=== PATIENT | female | born 1945 | race Caucasian/White ===

== ENCOUNTER 2019-04-29 11:26 | Emergency (ER) | payer OTHER ==
[~2019-04-29] VITALS: Ht 160 cm; Wt 88.0 kg
[2019-04-29] MEDS ORDERED: ATORVASTATIN CA40 MG PO (11:54)
[2019-04-29] MEDS ORDERED: MICARDIS 80 MG80 MG PO (11:54)
[2019-04-29] MEDS ORDERED: PACERONE 200 M200 M1 PO (11:54)
[2019-04-29] MEDS ORDERED: KLOR-CON 1010 MEQ PO (11:54)
[2019-04-29] MEDS ORDERED: FLONASE 0.05%50 MCG NASAL (11:56)
[2019-04-29] MEDS ORDERED: UNICOMPLEX M TA1 TA1 PO (11:56)
[2019-04-29] MEDS ORDERED: ASPIR 8181 MG PO (11:56)
[2019-04-29] MEDS ORDERED: PHOSLO667 MG PO (11:56)
--- NOTE | 2019-04-29 13:54 | EKG ---
[place] [address] [facility] [place] [address] ELECTROCARDIOGRAM REPORT Name: JEANNEELGIN ROHITH Room #: [facility] [id number] ������������������ Admission: 04/29/19 ������������������ Attend Phys: Discharge: ������������������ Date of : 49 Report #: [id number] ����������������������������������������������������������������� [id number] THIS REPORT FOR: //name// [facility] ED Test Date: 2019-04-29 Test Time: 12:42:30 Pat Name: ELGIN ANGEL Department: Room: Gender: F [employer]: TALISHA : 1945 Requested By: Kacie Camacho Order Number: [id number] MD: Carlos Jaquez Measurements Intervals [place] Rate: 58 P: 21 [place]: 210 QRS: -29 QRSD: 92 T: 55 QT: 463 QTc: 455 Interpretive Statements Sinus rhythm Borderline left axis deviation Anteroseptal infarct, age indeterminate Baseline wander in lead(s) V1 No previous ECG available for comparison Electronically Signed On 04-29-2019 13:54:32 CDT by Carlos Jaquez [email or web address] ��������������������������������������������� <ELECTRONICALLY SIGNED> ���������������������������������������� By: Carlos Jaquez MD ��������������������������������������������� 04/29/19 1354 [id number] 1242 Carlos Jaquez MD /JUAN
[2019-04-29 14:40] LABS: HEMATOCRIT 32.9 % (37.0-47.0); HEMOGLOBIN 10.7 gm/dL (12.0-15.0); MCH 28.1 pg (26.0-34.0); MCHC 32.4 g/dL (28.0-37.0); MCV 86.9 fL (80.0-100.0); PLATELET COUNT 272 thou/uL (150-400); RBC 3.79 mil/uL (4.20-5.00); RDW 13.4 % (10.5-14.5); WBC 21.2 thou/uL (4.0-11.0)
[2019-04-29 14:56] LABS: PLATELET ESTIMATE NORMAL
[2019-04-29 14:58] LABS: ANION GAP 8 mmol/L (7-16); BUN 26 mg/dL (7-18); CALCIUM 9.5 mg/dL (8.5-10.1); CHLORIDE 105 mmol/L (98-107); CO2 25 mmol/L (21-32); CREATININE 2.2 mg/dL (0.6-1.0); GLUCOSE 131 mg/dL (74-106); POTASSIUM 5.2 mmol/L (3.5-5.1); SODIUM 138 mmol/L (136-145)
[2019-04-29 15:03] LABS: ALBUMIN 3.4 g/dL (3.4-5.0); SGOT 46 U/L (15-37); SGPT 45 U/L (30-65); TOTAL PROTEIN 7.2 g/dL (6.4-8.2); TROPONIN-I <0.06 ng/mL (<0.06)
[2019-04-29 15:24] LABS: PROTIME 9.9 Seconds (9.3-11.4)
[2019-04-29 15:40] LABS: URINE BILIRUBIN NEGATIVE (Negative); URINE BLOOD NEGATIVE (Negative); URINE CLARITY CLEAR; URINE COLOR YELLOW; URINE GLUCOSE-RANDOM* NEGATIVE (Negative); URINE KETONES NEGATIVE (Negative); URINE NITRITE-REFLEX NEGATIVE (Negative); URINE PROTEIN (DIPSTICK) NEGATIVE (Negative); URINE UROBILINOGEN 0.2 E.U./dl (0.2-1.0)
[2019-04-29 15:45] LABS: URINE LEUKOCYTES-REFLEX 1+ (Negative)
[2019-04-29 15:57] LABS: BACTERIA-REFLEX None Seen /HPF (None Seen); CRYSTALS None Seen /LPF (None Seen); HYALINE CASTS 0-3 Few /LPF (None Seen); SQUAMOUS 0-3 Few /LPF (0-3); URINE RBC 0-2 Rare /HPF (0-2); URINE WBC-REFLEX >25 Many /HPF (0-5)
[2019-04-29 16:54] VITALS: BP 143/51
== END 2019-04-29 18:01 | disposition short-term general hospital (02) ==
LOC: ER 11:26
PROVIDERS: Nurse Practitioner Family
DX: S22.43XA Multiple fractures of ribs, bilateral, initial encounter for closed fracture (principal); S01.01XA Laceration without foreign body of scalp, initial encounter; N39.0 Urinary tract infection, site not specified; D72.829 Elevated white blood cell count, unspecified; W10.9XXA Fall (on) (from) unspecified stairs and steps, initial encounter; Y92.89 Other specified places as the place of occurrence of the external cause; Y93.89 Activity, other specified; Y99.8 Other external cause status